=== PATIENT | male | born 1960 | race Caucasian/White ===

== ENCOUNTER 2019-01-10 11:49 | Emergency (ER) | payer OTHER ==
[~2019-01-10] VITALS: Ht 172.7 cm; Wt 72.6 kg
[2019-01-10] MEDS ORDERED: METFORMIN HCL500 M2 PO (12:33)
[2019-01-10] MEDS ORDERED: JANUMET 50-1,01 EACH PO (12:33)
== END 2019-01-10 14:09 | disposition home or self-care (01) ==
LOC: ER 11:49
DX: S90.421A Blister (nonthermal), right great toe, initial encounter (principal); M20.5X1 Other deformities of toe(s) (acquired), right foot; X58.XXXA Exposure to other specified factors, initial encounter; Y93.89 Activity, other specified; Y92.89 Other specified places as the place of occurrence of the external cause; Y99.8 Other external cause status